=== PATIENT | female | born 1945 | race Two or more races ===

== ENCOUNTER → 2020-09-15 | Day surgery (SDC) | payer OTHER ==
[~2020-09-15] MED LIST: LODOSYN25 MG PO; ROPINIROLE HCL1 MG PO; SYNTHROID100 MCG PO
== END | disposition home or self-care (01) ==
LOC: ADM 09-08 07:15 → CIR.AMB 07:15
PROVIDERS: ATTEND Surgery
DX: D24.2 Benign neoplasm of left breast (principal); Z20.828 Contact with and (suspected) exposure to other viral communicable diseases